=== PATIENT | female | born 1985 | race Caucasian/White ===

== ENCOUNTER 2020-05-18 07:52 | Emergency (ER) | payer OTHER, SELFPAY ==
[2020-05-18 07:54] VITALS: BP 143/86; PULSE 75; RESP 16; TEMP 36.8; O2SAT 100; BMI 23.3
--- NOTE | 2020-05-18 07:59 | ED_ITS ---
HPI - Abdominal Pain General: Chief Complaint: Abdominal Pain Stated Complaint: Abd Pain Time Seen by Provider: 05/18/20 07:53 Source: patient Mode of arrival: ambulatory Limitations: no limitations History of Present Illness: HPI narrative: Patient is a 35-year-old female who presents to ED today with a complaint of upper abdominal pain over the past 4 to 5 days. She reports most of her pain is located to the epigastric region. She states anytime she eats or drinks she begins experiencing worsening pain to her epigastric and states it then radiates across her abdomen. She states eating or drinking causes her to feel like she needs to defecate. She is reporting non- bloody diarrhea. She has no urinary symptoms at this time. No flank pain. She has had multiple episodes of dry heaving but no active episodes of vomiting. Denies fevers. Denies history of acid reflux, GERD, gastritis, gastric ulcers. Associated Symptoms: Reports diarrhea and nausea; Denies chills, coffee ground emesis, dysuria, fever(s), heartburn, hematochezia, hematemesis, melena, syncope and vomiting Review of Systems Const: Denies: fever(s) or chills Eyes: Denies: change in vision or blurry vision ENMT: Denies: odynophagia Card: Denies: chest pain, palpitations, irregular heart rhythm, lightheadedness, syncope or dyspnea on exertion Resp: Denies: dyspnea, productive cough or pain on inspiration GI: Reports: abdominal pain, nausea and diarrhea; Denies: vomiting, hematemesis, coffee ground emesis, dysphagia, heartburn, rectal pain, hematochezia, melena or white/light colored stool : Denies: flank pain, difficulty voiding, dysuria, urinary frequency, urinary urgency or urinary hesitancy Musc: Denies: neck pain, back pain or joint pain Skin/Breast: Denies: rash Neuro: Denies: headache(s) Physical Exam Const: COMMON NORMALS: no acute distress, average body habitus, patient oriented x3, no limitations, healthy appearing, alert and well nourished HENMT: COMMON NORMALS: normocephalic and atraumatic HEAD & SCALP: normocephalic and atraumatic Resp: COMMON NORMALS: normal respiratory effort and clear to auscultation bilaterally AUSCULTATION: clear to auscultation bilaterally Cardio: COMMON NORMALS: regular rate and regular rhythm RATE: regular rate RHYTHM: regular rhythm GI: COMMON NORMALS: Normal to inspection, nondistended, normoactive bowel sounds present, Soft to palpation, No hepatosplenomegaly present and no masses PALPATION: Yes Soft to palpation, Yes Tenderness to palpation present (GI) (mainly to epigastric; mild RUQ; negative Whaley's ) and Yes No hepatosplenomegaly present : COMMON NORMALS: Yes no CVA tenderness BLADDER/KIDNEY EXAM: Yes no CVA tenderness Back/Pelvis: COMMON NORMALS: no CVA tenderness Neuro: COMMON NORMALS: patient oriented x3 SENSORIUM/ORIENTATION: Yes alert Skin: COMMON NORMALS: no rashes or lesions noted GENERAL SKIN EXAM: no rashes or lesions noted Course Vital Signs: Vital signs: Vital Signs Temperature 98.2 F 05/18/20 07:54 Pulse Rate 57 L 05/18/20 09:00 Respiratory Rate 18 05/18/20 09:00 Blood Pressure 120/77 05/18/20 09:00 Pulse Oximetry 99 05/18/20 09:00 MDM - Abdominal Pain MDM Narrative: Medical decision making narrative: Patient has not had any episodes of dry heaving or vomiting here. Her labs at this time are non- concerning. She has a negative CT scan. Patient will be treated with Protonix, Carafate, and Zofran. Recommend follow-up with primary care in one week for re- evaluation. Return to ED precautions given. Lab Data: Labs: Lab Results 05/18/20 05/18/20 05/18/20 Range/Units 08:01 08:15 08:15 WBC 4.0 (4.0-10.0) 10^3/ uL RBC 4.23 (4.1-5.3) 10^6/u L Hgb 13.1 (11.5-15.3) g/dL Hct 41.2 (37.0-47.0) % MCV 97.4 (81-99) fL MCH 31.0 (28.0-34.0) pg MCHC 31.8 (30.0-36.0) g/dL RDW 12.5 (12.1-15.1) % Plt Count 187 (130-400) 10^3/c mm MPV 12.0 H (7.4-10.4) fL Neut % (Auto) 63.0 % Lymph % (Auto) 22.2 % Roosevelt % (Auto) 8.8 % Eos % (Auto) 4.5 % Baso % (Auto) 1.0 % Neut # (Auto) 2.49 (1.8-7.7) 10^3/u L Lymph # (Auto) 0.9 (0.8-4.8) 10^3/u L Roosevelt # (Auto) 0.4 (0.2-0.9) 10^3/u L Eos # (Auto) 0.2 (0.0-0.8) 10^3/u L Baso # (Auto) 0.0 (0.0-0.1) 10^3/u L Nucleated RBC % (a uto) 0 % Nucleated RBCs # 0.0 /100WBC Sodium 137 (136-145) mmol/L Potassium 3.6 (3.5-5.1) mmol/L Chloride 102 (98-107) mmol/L Carbon Dioxide 28 (22-29) mmol/L Anion Gap 10.6 (5-19) BUN 8 (6-20) mg/dL Creatinine 0.5 (0.5-0.9) mg/dL GFR Calculation 138.8 H (90-130) mL/min Glucose 85 (65-115) mg/dL Calculated Osmolal ity 282 L (285-295) mOsm/k g Calcium 9.0 (8.5-10.5) mg/dL Total Bilirubin 0.3 (0.15-1.2) mg/dL AST 12 (0-32) U/L ALT 12 (0-33) U/L Alkaline Phosphata se 46 (35-105) IU/L Total Protein 6.4 L (6.6-8.7) g/dL Albumin 4.2 (3.5-5.2) g/dL Globulin 2.2 (1.3-4.6) g/dL Lipase 9 L (13-60) U/L HCG, Qual (Negative) Urine Color Yellow (Yellow) Urine Appearance Clear (CLEAR) Urine pH 7 (5-7) Ur Specific Gravit y 1.005 (1.005-1.030) Urine Protein Neg (Negative) Urine Glucose (UA) Norm (Normal) Urine Ketones Negative (Negative) Urine Blood Neg (Negative) Urine Nitrate Negative (Negative) Urine Bilirubin Neg (Negative) Urine Urobilinogen Norm (Negative) mg/dL Ur Leukocyte Paradise ase Negative (Negative) 05/18/20 Range/Units 08:15 WBC (4.0-10.0) 10^3/ uL RBC (4.1-5.3) 10^6/u L Hgb (11.5-15.3) g/dL Hct (37.0-47.0) % MCV (81-99) fL MCH (28.0-34.0) pg MCHC (30.0-36.0) g/dL RDW (12.1-15.1) % Plt Count (130-400) 10^3/c mm MPV (7.4-10.4) fL Neut % (Auto) % Lymph % (Auto) % Roosevelt % (Auto) % Eos % (Auto) % Baso % (Auto) % Neut # (Auto) (1.8-7.7) 10^3/u L Lymph # (Auto) (0.8-4.8) 10^3/u L Roosevelt # (Auto) (0.2-0.9) 10^3/u L Eos # (Auto) (0.0-0.8) 10^3/u L Baso # (Auto) (0.0-0.1) 10^3/u L Nucleated RBC % (a uto) % Nucleated RBCs # /100WBC Sodium (136-145) mmol/L Potassium (3.5-5.1) mmol/L Chloride (98-107) mmol/L Carbon Dioxide (22-29) mmol/L Anion Gap (5-19) BUN (6-20) mg/dL Creatinine (0.5-0.9) mg/dL GFR Calculation (90-130) mL/min Glucose (65-115) mg/dL Calculated Osmolal ity (285-295) mOsm/k g Calcium (8.5-10.5) mg/dL Total Bilirubin (0.15-1.2) mg/dL AST (0-32) U/L ALT (0-33) U/L Alkaline Phosphata se (35-105) IU/L Total Protein (6.6-8.7) g/dL Albumin (3.5-5.2) g/dL Globulin (1.3-4.6) g/dL Lipase (13-60) U/L HCG, Qual Negative (Negative) Urine Color (Yellow) Urine Appearance (CLEAR) Urine pH (5-7) Ur Specific Gravit y (1.005-1.030) Urine Protein (Negative) Urine Glucose (UA) (Normal) Urine Ketones (Negative) Urine Blood (Negative) Urine Nitrate (Negative) Urine Bilirubin (Negative) Urine Urobilinogen (Negative) mg/dL Ur Leukocyte Paradise ase (Negative) Imaging Data ^: CT Abd/Pel: Radiologist's impression: [facility] [address] [place] [address] CT Scan Report Signed Patient: Esthela Anguiano Unit #: [id number] : [id number] Age/Sex: 35 / F ADM Date: 05/18/20 Loc: ER Room/Bed: Attending Dr: Ordering Provider/Ordering MD: Dana Mendoza Date of Service: 05/18/20 Procedure(s): CT abdomen pelvis w con* [id number] Accession Number(s): [id number] Report Number: [id number] WS: [id number] CT scan of the abdomen and pelvis with IV contrast. Additional two-dimensional coronal and sagittal reconstruction was performed. 05/18/2020 Clinical Data: upper abdominal pain Comparison: CT pelvis, 03/26/2006. DLP: 376.[address] scans at [facility] use at least one of these dose optimization techniques: automated exposure control; mA and/or kV adjustment per patient size (includes targeted exams where dose is matched to clinical indication); or iterative reconstruction. Findings: The lower lungs show no nodules, masses or effusions. Bilateral augmentation mammoplasty implants are in position. The liver, gallbladder, spleen, adrenal glands and pancreas are normal. There may be a small left adrenal cyst measuring 1.46 cm per The kidneys show equal bilateral contrast excretion with no cyst or masses. No hydronephrosis or renal calculi are seen. The abdominal aorta is normal in size. No appendicitis or diverticulitis is seen. The stomach, small bowel and colon show no abnormalities. There is ingested material within the colon. No abscess, adenopathy, ascites, mass, obstruction or free air is seen. The bladder is unremarkable. No inguinal hernia is seen. The uterus is absent. The bones of the lower thorax, lumbar spine, pelvis, and hips are normal. CT/CT abdomen pelvis w con* [id number] Impression: Negative CT scan of the abdomen and pelvis. Dictated By: Marcie Kincaid MD Signed By: Marcie Kincaid MD Signed Date/Time: 05/18/20 1022 DD/ 1013 Discharge Plan Discharge Patient Disposition: Home Clinical Impression: Gastritis Qualifiers: Gastritis type: unspecified gastritis Chronicity: acute Gastritis bleeding: without bleeding Qualified Code(s): K29.00 - Acute gastritis without bleeding Condition: Stable Prescriptions: New Carafate 1 gram tablet 1 g PO TID 14 Days Qty: 42 RF: 0 Protonix 40 mg tablet,delayed release (DR/EC) 40 mg PO BID 14 Days Qty: 28 RF: 0 Zofran 4 mg tablet 4 mg PO Q6H PRN (Reason: nausea and vomiting) Qty: 14 RF: 0 No Action ibuprofen 800 mg Tablet 800 mg PO TID PRN (Reason: Pain) RF: 0 Anti-Diarrhea 2 mg Tablet See Rx Instructions .ROUTE .COMPLEX RF: 0 Pepto-Bismol 262 mg Tablet,Chewable 3 tab PO PRN RF: 0 Discharge Orders: Discharge ED (Routine); Ordered 05/18/20 Ordered By: Dana Mendoza Patient Instructions: Gastritis (ED), Diet for Ulcers and Gastritis (ED) Activity Restrictions/Additional Instructions: As discussed bland diet for the next 2 to 3 days and advance as tolerated. You need to return to the emergency department for worsening abdominal pain, vomiting blood, bloody stools, fevers, or any other concerns you may have. Coding Level of Care Code ED Plant Propagator for Nicole Fwd Exam Detailed
[2020-05-18] MEDS: lidocaine 2% viscous 15 ML, aluminum-mag hydrox-simethicon 30 ML, sucralfate oral liq 1 GM PO (08:25)
[2020-05-18] MEDS: ondansetron 2 mg/ML SDV 2 mL 4 MG IVP (08:26)
[2020-05-18] MEDS: sodium chloride 0.9% 1,000 ML 999 ML IV (08:27)
[2020-05-18 08:30] VITALS: BP 148/98; PULSE 68; RESP 18; O2SAT 100
[2020-05-18 08:46] LABS: Alanine Aminotransferase 12 U/L (0-33); Albumin Level 4.2 g/dL (3.5-5.2); Alkaline Phosphatase 46 IU/L (35-105); Anion Gap 10.6 (5-19); Aspartate Amino Transferase 12 U/L (0-32); Blood Urea Nitrogen 8 mg/dL (6-20); Carbon Dioxide 28 mmol/L (22-29); Chloride 102 mmol/L (98-107); Globulin 2.2 g/dL (1.3-4.6); Glomerular Filtration Rate 138.8 mL/min (90-130); Glucose 85 mg/dL (65-115); Lipase 9 U/L (13-60); Osmolality Calculated 282 mOsm/kg (285-295); Potassium 3.6 mmol/L (3.5-5.1); Sodium 137 mmol/L (136-145); Total Bilirubin 0.3 mg/dL (0.15-1.2); Total Protein 6.4 g/dL (6.6-8.7)
[2020-05-18 08:53] LABS: Eosinophils # 0.2 10^3/uL (0.0-0.8); Eosinophils % 4.5 %; HCG, Serum Qual Negative (Negative); Hematocrit 41.2 % (37.0-47.0); Hemoglobin 13.1 g/dL (11.5-15.3); Lymphocytes # 0.9 10^3/uL (0.8-4.8); Lymphocytes % 22.2 %; Mean Corpuscular HGB Conc 31.8 g/dL (30.0-36.0); Mean Corpuscular Volume 97.4 fL (81-99); Monocytes # 0.4 10^3/uL (0.2-0.9); Monocytes % 8.8 %; Neutrophils # 2.49 10^3/uL (1.8-7.7); Nucleated Red Blood Cells % 0 %; Platelet Count 187 10^3/cmm (130-400); Red Blood Count 4.23 10^6/uL (4.1-5.3); Red Cell Distribution Width 12.5 % (12.1-15.1)
[2020-05-18 09:00] VITALS: BP 120/77; PULSE 57; RESP 18; O2SAT 99
--- NOTE | 2020-05-18 09:25 | CT_ITS ---
WS: [id number] CT scan of the abdomen and pelvis with IV contrast. Additional two-dimensional coronal and sagittal r econstruction was performed. 05/18/2020 Clinical Data: upper abdominal pain Comparison: CT pelvis, 03/26/2006. DLP: 376.[address] scans at [facility] use at least one of these dose optimization techniques: automat ed exposure control; mA and/or kV adjustment per patient size (includes targeted exams where dose is matched to clinical indication); or iterative reconstruction. Findings: The lower lungs show no nodules, masses or effusions. Bilateral augmentation mammoplasty implants are in position. The liver, gallbladder, spleen, adrenal glands and pancreas are normal. There may be a small left adrenal cyst measuring 1.46 cm per The kidneys show equal bilateral contrast excretion with no cyst or masses. No hydronephrosis or camille l calculi are seen. The abdominal aorta is normal in size. No appendicitis or diverticulitis is seen. The stomach, small bowel and colon show no abnormalities. There is ingested material within the colon. No abscess, adenopathy, ascites, mass, obstruction or fr ee air is seen. The bladder is unremarkable. No inguinal hernia is seen. The uterus is absent. The bones of the lower thorax, lumbar spine, pelvis, and hips are normal. CT/CT abdomen pelvis w con* [id number] Impression: Negative CT scan of the abdomen and pelvis.
[2020-05-18 09:49] LABS: Add Urine Microscopic? NO
[2020-05-18] MEDS: iohexol 300 mg/mL 100 mL Btl IV (10:01)
[2020-05-18 10:08] LABS: Bilirubin Urine Neg (Negative); Blood Urine Neg (Negative); Glucose Urine UA Norm (Normal); Ketones Urine Negative (Negative); Leukocyte Esterase Urine Negative (Negative); Nitrate Urine Negative (Negative); Protein Urine Neg (Negative); Specific Gravity, Urine 1.005 (1.005-1.030); Urine Appearance Clear (CLEAR); Urine Color Yellow (Yellow); Urobilinogen Urine Norm (Negative); pH Urine 7 (5-7)
[2020-05-18 11:10] VITALS: BP 118/39; PULSE 52; RESP 16; O2SAT 100
== END 2020-05-18 11:10 | disposition home or self-care (01) ==
PROVIDERS: Emergency Provider Physician Assistant; PCP General Practice
DX: K29.00 Acute gastritis without bleeding (principal)
CPT/HCPCS: 12345; 74177; 80053; 81003; 83690; 84703; 85025; 96361; 96374; 99282; 99283; J2405; J7030; Q9967

== ENCOUNTER → 2020-09-28 11:34 | Outpatient (BNVA) | payer OTHER, SELFPAY | PROVIDERS: PCP Nurse Practitioner Family; Visit Provider Registered Nurse Neonatal Intensive Care | DX: M25.522 Pain in left elbow (principal) | CPT/HCPCS: 73080 ==

== ENCOUNTER → 2023-02-12 09:11 | Outpatient (BNVA) | payer BC, SELFPAY | PROVIDERS: PCP Nurse Practitioner Family; Visit Provider Nurse Practitioner Family | DX: J02.9 Acute pharyngitis, unspecified (principal); J06.9 Acute upper respiratory infection, unspecified; F41.9 Anxiety disorder, unspecified | CPT/HCPCS: 87071; 87880 ==

== ENCOUNTER → 2024-01-29 13:19 | Outpatient (BNVA) | payer OTHER, SELFPAY | PROVIDERS: PCP Nurse Practitioner Family; Visit Provider Nurse Practitioner Family | DX: F41.9 Anxiety disorder, unspecified (principal) | CPT/HCPCS: 80053; 80061; 84443; 85025 ==

== ENCOUNTER → 2024-03-11 16:49 | Outpatient (BNVA) | payer OTHER, SELFPAY | PROVIDERS: PCP Nurse Practitioner; Visit Provider Nurse Practitioner | DX: L98.9 Disorder of the skin and subcutaneous tissue, unspecified (principal) | CPT/HCPCS: 88305 ==

== ENCOUNTER → 2024-03-24 08:30 | Outpatient (BNVA) | payer OTHER, SELFPAY | PROVIDERS: PCP Nurse Practitioner; Visit Provider Nurse Practitioner | DX: L98.9 Disorder of the skin and subcutaneous tissue, unspecified (principal) | CPT/HCPCS: 88305 ==

== ENCOUNTER 2024-03-26 09:41 | Outpatient (CLI) | payer OTHER, SELFPAY ==
--- NOTE | 2024-03-26 10:00 | MM_ITS ---
WS: [id number] BILATERAL SCREENING DIGITAL BREAST MAMMOGRAPHY WITH LUÍS DISPLACEMENT VIEWS. CAD PERFORMED. HISTORY: Z12.39 - Encounter for other screening for malignant neop... COMPARISON: None available. Bilateral craniocaudal and mediolateral oblique views are performed with tomosynthesis and SM. Luís displacement views in CC and MLO projection also performed. Breasts composition: The breasts are heterogeneously dense, which may obscure small masses. Implants are intact. No suspicious masses or calcifications. MM/MM [facility] tomosynthesis [id number] IMPRESSION: BI-RADS: 2 - Benign FOLLOW-UP: 1 Year Follow-up
== END 2024-03-26 09:42 | disposition home or self-care (01) ==
LOC: RAD 09:42
PROVIDERS: PCP Nurse Practitioner; Visit Provider Nurse Practitioner Family
DX: Z12.31 Encounter for screening mammogram for malignant neoplasm of breast (principal); R92.333 Mammographic heterogeneous density, bilateral breasts; Z98.82 Breast implant status
CPT/HCPCS: 77063; 77067